=== PATIENT | male | born 1970 | race Caucasian/White ===

== ENCOUNTER 2020-03-10 09:15 | Emergency (ER) | payer BC ==
[2020-03-10] MEDS ORDERED: SODIUM CHLORIDE 0.9% 1,000 ML IV STA (10:43)
[2020-03-10] MEDS ORDERED: MECLIZINE 12.5 MG TABLET PO STA (10:43)
[2020-03-10 10:55] LABS: BASOPHILS # (AUTO) 0.1 10^3/uL (0.0-0.1); BASOPHILS % (AUTO) 1.2 %; EOSINOPHILS # (AUTO) 0.1 10^3/uL (0.0-0.7); EOSINOPHILS % (AUTO) 1.6 %; HGB - HEMOGLOBIN 15.9 g/dL (14.0-18.0); LYMPHOCYTES # (AUTO) 1.9 10^3/uL (1.5-3.5); LYMPHOCYTES % (AUTO) 23.4 %; MEAN CORPUSCULAR HEMOGLOBIN 31.9 pg (27.0-31.0); MEAN CORPUSCULAR HGB CONC 34.3 g/dL (32.0-36.0); MEAN PLATELET VOLUME 11.5 fL (7.4-11.4); MONOCYTES # (AUTO) 0.5 10^3/uL (0.0-1.0); MONOCYTES % (AUTO) 6.2 %; NEUTROPHILS # (AUTO) 5.5 10^3/uL (1.5-6.6); NEUTROPHILS % (AUTO) 67.1 %; PLT - PLATELET COUNT 306 10^3/uL (130-450); RED BLOOD COUNT 4.99 10^6/uL (4.70-6.10); RED CELL DISTRIBUTION WIDTH 12.7 % (12.0-15.0); WHITE BLOOD COUNT 8.2 x10^3/uL (4.8-10.8)
[2020-03-10 11:09] LABS: ALBUMIN 4.7 g/dL (3.2-5.5); ALBUMIN/GLOBULIN RATIO 1.5 (1.0-2.2); BILIRUBIN,TOTAL 0.6 mg/dL (0.2-1.0); CALCIUM 9.8 mg/dL (8.5-10.3); CREATININE 1.1 mg/dL (0.6-1.2); TOTAL PROTEIN 7.8 g/dL (6.7-8.2)
--- NOTE | 2020-03-10 12:26 | ED Physician Documentation ---
History of Present Illness - Stated complaint Stated Complaint: VERTIGO - Chief complaint Chief Complaint: Neuro - History obtained from History obtained from: Patient - Additonal information Additional information: Patient comes emergency department complaining of an intermittent sense of "vertigo" when he stands up. He states he also notices it if he bends his chin down toward his chest and then brings his head back. Patient states he probably has not been drinking enough fluids lately. He states he drinks club soda every day with about "2 fingers" of mullins juice. He states that the glasses are about 12 ounces and he drinks 2-3 to them each day. He states he occasionally drinks coffee in addition, but does not otherwise have any liquids. Patient states he has not yet drank anything yet today. Patient states he was treated for herpes zoster a couple of months ago and has had a postherpetic neuralgia since. He has not had any vertigo associated with it, however. Patient states he was able to drive here, and that his gait and coordination have not been affected by this sensation of vertigo. Patient states that he has not had any ringing in his ears or nausea. No palpitations, chest pain, shortness of breath. No hearing loss. No focal deficits. No other recent illnesses. Patient states that the sensation feels more like a movement feeling than a lightheadedness. No other complaints at this time. Review of Systems Ten Systems: 10 systems reviewed and negative Constitutional: reports: Reviewed and negative Eyes: reports: Reviewed and negative Ears: reports: Reviewed and negative Nose: reports: Reviewed and negative Throat: reports: Reviewed and negative Cardiac: reports: Reviewed and negative Respiratory: reports: Reviewed and negative GI: reports: Reviewed and negative : reports: Reviewed and negative Skin: reports: Reviewed and negative Musculoskeletal: reports: Reviewed and negative Neurologic: reports: Reviewed and negative Psychiatric: reports: Reviewed and negative Endocrine: reports: Reviewed and negative Immunocompromised: reports: Reviewed and negative PD PAST MEDICAL HISTORY - Past Medical History Past Medical History: No Cardiovascular: Hypertension, High cholesterol Respiratory: None Neuro: None Endocrine/Autoimmune: None GI: None : None HEENT: None Psych: None Musculoskeletal: None Derm: None - Past Surgical History Past Surgical History: No - Allergies Allergies/Adverse Reactions: Allergies Allergy/AdvReac Type Severity Reaction Status Date / Time No Known Drug Allergies Allergy Verified 08/28/20 09:25 - Social History Does the pt smoke?: No Smoking Status: Never smoker Does the pt drink ETOH?: Yes Does the pt have substance abuse?: No - Immunizations Immunizations are current?: Yes - POLST Patient has POLST: No PD ED PE NORMAL - Vitals Vital signs reviewed: Yes - General General: Alert and oriented X 3, No acute distress - HEENT HEENT: Atraumatic, PERRL, EOMI, Moist mucous membranes - Neck Neck: Supple, no meningeal sign - Cardiac Cardiac: RRR, No murmur, Strong equal pulses - Respiratory Respiratory: No respiratory distress, Clear bilaterally - Abdomen Abdomen: Soft, Non tender, Non distended - Back Back: No CVA TTP - Derm Derm: Normal color, Warm and dry, No rash - Extremities Extremities: No deformity, No edema, No calf tenderness / cord - Neuro Neuro: Alert and oriented X 3, 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 No: T wave inversion Compare to prior EKG: Old EKG unavailable Computer interpretation: Agree with computer - Labs Labs: Laboratory Tests 03/10/20 03/10/20 10:50 10:50 WBC 8.2 RBC 4.99 Hgb 15.9 Hct 46.4 MCV 93.0 MCH 31.9 H MCHC 34.3 RDW 12.7 Plt Count 306 MPV 11.5 H Neut # (Auto) 5.5 Lymph # (Auto) 1.9 White # (Auto) 0.5 Eos # (Auto) 0.1 Baso # (Auto) 0.1 Absolute Nucleated RBC 0.00 Nucleated RBC % 0.0 Sodium 137 Potassium 4.4 Chloride 96 L Carbon Dioxide 28 Anion Gap 13.0 BUN 15 Creatinine 1.1 Estimated GFR (MDRD) 72 L Glucose 113 H Calcium 9.8 Total Bilirubin 0.6 AST 26 ALT 33 Alkaline Phosphatase 46 Total Protein 7.8 Albumin 4.7 Globulin 3.1 Albumin/Globulin Ratio 1.5 Lipase 46 PD MEDICAL DECISION MAKING - ED course Complexity details: reviewed results, re-evaluated patient, considered differential, d/w patient ED course: The pt was very well-appearing, and had minimal complaints upon my evaluation. He was given IV fluids and meclizine, and labs were checked, which were unremarkable. I have d/w pt that I feel a central source of vertigo is unlikely, given his description of sx, and that this is likely a case of mild BPV. We have discussed home management of the sx, as well as the usual indications for return. Departure - Departure Disposition: 01 Home, Self Care Clinical Impression: Vertigo Condition: Stable Instructions: ED Vertigo Unspecified Comments: Your labs all look good. It is very important that you drink plenty of fluids, especially water, throughout the day to keep yourself well-hydrated. This will also help with your sensation of dizziness. There is no evidence of an emergent condition causing your symptoms today. You have been rehydrated in the emergency department with IV fluids. Please follow-up with your primary care physician if you are not feeling better in the next week. Discharge Date/Time: 03/10/20 12:59
[2020-03-10 12:51] VITALS: BP 131/84
== END 2020-03-10 12:59 | disposition home or self-care (01) ==
LOC: ED 09:15
DX: R42 Dizziness and giddiness (principal); I10 Essential (primary) hypertension
CPT/HCPCS: 36415; 80053; 83690; 85025; 93005; 96360; 96361; 99284; A9270